=== PATIENT | male | born 1960 | race Caucasian/White ===

== ENCOUNTER 2023-05-16 06:53 | Day surgery (SDC) | payer OTHER ==
[~2023-05-16] VITALS: Ht 175.3 cm; Wt 99.8 kg
[2023-05-16] MEDS ORDERED: diphenhydrAMINE 50 MG/ML VIAL ONE (07:19)
[2023-05-16] MEDS ORDERED: MIDAZOLAM 5 MG/5 ML VIAL ONE (07:20)
[2023-05-16] MEDS ORDERED: fentaNYL citrate 0.05 MG/ML VIAL ONE (07:20)
[2023-05-16] MEDS: MIDAZOLAM 5 MG/5 ML VIAL IV ONE (07:38)
[2023-05-16] MEDS: fentaNYL citrate 0.05 MG/ML VIAL IVP ONE (07:39)
== END 2023-05-16 08:37 | disposition home or self-care (01) ==
LOC: MDS 06:53 → MMU 06:58 → MDS 08:37
PROVIDERS: ATTEND Internal Medicine Gastroenterology
DX: R10.13 Epigastric pain (principal); K21.9 Gastro-esophageal reflux disease without esophagitis; K31.89 Other diseases of stomach and duodenum; I10 Essential (primary) hypertension; F41.9 Anxiety disorder, unspecified; F32.A Depression, unspecified; Z79.899 Other long term (current) drug therapy
CPT/HCPCS: 43239; 88305; 88312; 88313; 88342; J2250; J3010; J1200

== ENCOUNTER 2023-08-08 08:28 | Day surgery (SDC) | payer OTHER ==
[~2023-08-08] VITALS: Ht 167.6 cm; Wt 73.5 kg
[2023-08-08] MEDS ORDERED: diphenhydrAMINE 50 MG/ML VIAL ONE (08:57)
[2023-08-08] MEDS ORDERED: MIDAZOLAM 5 MG/5 ML VIAL ONE (08:58)
[2023-08-08] MEDS ORDERED: fentaNYL citrate 0.05 MG/ML VIAL ONE (08:58)
[2023-08-08] MEDS ORDERED: LIDOCAINE 2% 100 MG/5 ML UJET TP ONE (08:58)
[2023-08-08] MEDS ORDERED: fentaNYL citrate 0.05 MG/ML VIAL IVP ONE (13:05)
[2023-08-08] MEDS ORDERED: MIDAZOLAM 2 MG/2 ML VIAL IVP ONE (13:05)
== END 2023-08-08 09:50 | disposition home or self-care (01) ==
LOC: MDS 08:28 → MMU 08:31 → MDS 09:50
PROVIDERS: ATTEND Internal Medicine Gastroenterology
DX: Z12.11 Encounter for screening for malignant neoplasm of colon (principal); D12.3 Benign neoplasm of transverse colon; I10 Essential (primary) hypertension; K21.00 Gastro-esophageal reflux disease with esophagitis, without bleeding; Z79.899 Other long term (current) drug therapy
CPT/HCPCS: 45385; 88305; J2250; J3010; J1200